=== PATIENT | female | born 1980 | race Two or more races ===

== ENCOUNTER 2021-09-06 11:21 | Emergency (ER) | payer OTHER, SELFPAY ==
--- NOTE | 2021-09-06 | ECG_ITS ---
Test Reason : LT ARM PAIN Blood Pressure : / mmHG Vent. Rate : 085 BPM Atrial Rate : 085 BPM P-R Int : 146 ms QRS Dur : 074 ms QT Int : 338 ms P-R-T Axes : 030 020 053 degrees QTc Int : 402 ms Normal sinus rhythm Nonspecific T wave abnormality Borderline ECG When compared with ECG of 22-OCT-2012 10:40, No significant change was found Referred By: Generic ED Physician Electronically Signed By:MEAGAN EATON
--- NOTE | ~2021-09-06 | CT_ITS ---
EXAMINATION: CT HEAD WITHOUT CONTRAST CT CERVICAL SPINE WITHOUT CONTRAST CLINICAL INFORMATION: Left arm tingling. Weakness for 5 days. Cervical radiculopathy. COMPARISON: None. TECHNIQUE: Imaging was performed from the skull base to vertex without intravenous administration of contrast. In addition, helical noncontrast CT imaging was acquired through the cervical spine and source images were reviewed along with axial reconstructions and sagittal and coronal MPRs. [This CT examination was performed using dose optimization techniques as appropriate, variously including the following: *Automated exposure control *Adjustment of mA and/or kV according to patient size (this includes techniques or standardized protocols for targeted exams where dose is matched to indication/reason for exam; i.e. extremities or head) *Use of iterative reconstruction technique] DLP: 1420 mGy-cm FINDINGS: HEAD: No intracranial mass, hemorrhage, or midline shift is visualized. The ventricles and sulci are proportional. No extra-axial collections are identified. The paranasal sinuses and mastoid air cells are well aerated. CERVICAL SPINE: There is no evidence of acute cervical spine fracture. Vertebral bodies remain normal in height. Cervical vertebrae have normal alignment. The cervical disc heights are normal. The facet joints are normal. Neural foramina are open throughout cervical spine. No central canal stenosis. No pre- or paravertebral soft tissue abnormality is identified. Limited assessment of the lung apices is unremarkable. CT/CT cervical spine wo con IMPRESSION: 1. No acute intracranial pathology. 2. Normal CT of cervical spine.
--- NOTE | ~2021-09-06 | US_ITS ---
EXAMINATION: US VENOUS WITH DOPPLER UPPER EXTREMITY, LEFT CLINICAL INFORMATION: Pain COMPARISON: None TECHNIQUE: Ultrasound of the upper extremity is performed using compression sonography and color and pulse Doppler flow with assessment of augmentation of flow. There is also imaging and Doppler assessment of the jugular and subclavian veins. Spectral analysis with color-flow imaging is performed. FINDINGS: Respiratory variation, normal compression, and augmented flow are noted throughout the upper extremity including the axillary, brachial, cubital, and radial and ulnar veins. There is normal flow in the internal jugular and subclavian veins. There is no visible deep or superficial thrombophlebitis. If the patient's symptoms progress, a followup ultrasound in 5 -7 days might be of value to exclude proximal propagation from a nonvisualized distal arm vein. US/US venous duplex UE LT IMPRESSION: No DVT demonstrated in the left upper extremity
--- NOTE | ~2021-09-06 | XR_ITS ---
EXAMINATION: XR ELBOW, LEFT CLINICAL INFORMATION: Rule out arthritis or fracture COMPARISON: None TECHNIQUE: AP, lateral, and oblique views of the left elbow. FINDINGS: The bones and soft tissues are normal. No fracture or joint effusion. Alignment is anatomic. Joint spaces are maintained. XR/XR elbow LT 2V IMPRESSION: Normal left elbow.
--- NOTE | ~2021-09-06 | XR_ITS ---
EXAMINATION: XR SHOULDER, LEFT CLINICAL INFORMATION: Pain COMPARISON: None TECHNIQUE: 3 views of the left shoulder. FINDINGS: The bones and soft tissues are normal. No fracture. Glenohumeral and acromioclavicular alignment is anatomic with normal joint space. No abnormal soft tissue calcifications. XR/XR shoulder LT min 2V IMPRESSION: Normal left shoulder.
--- NOTE | ~2021-09-06 | CT_ITS ---
EXAMINATION: CT HEAD WITHOUT CONTRAST CT CERVICAL SPINE WITHOUT CONTRAST CLINICAL INFORMATION: Left arm tingling. Weakness for 5 days. Cervical radiculopathy. COMPARISON: None. TECHNIQUE: Imaging was performed from the skull base to vertex without intravenous administration of contrast. In addition, helical noncontrast CT imaging was acquired through the cervical spine and source images were reviewed along with axial reconstructions and sagittal and coronal MPRs. [This CT examination was performed using dose optimization techniques as appropriate, variously including the following: *Automated exposure control *Adjustment of mA and/or kV according to patient size (this includes techniques or standardized protocols for targeted exams where dose is matched to indication/reason for exam; i.e. extremities or head) *Use of iterative reconstruction technique] DLP: 1420 mGy-cm FINDINGS: HEAD: No intracranial mass, hemorrhage, or midline shift is visualized. The ventricles and sulci are proportional. No extra-axial collections are identified. The paranasal sinuses and mastoid air cells are well aerated. CERVICAL SPINE: There is no evidence of acute cervical spine fracture. Vertebral bodies remain normal in height. Cervical vertebrae have normal alignment. The cervical disc heights are normal. The facet joints are normal. Neural foramina are open throughout cervical spine. No central canal stenosis. No pre- or paravertebral soft tissue abnormality is identified. Limited assessment of the lung apices is unremarkable. CT/CT head/brain wo con IMPRESSION: 1. No acute intracranial pathology. 2. Normal CT of cervical spine.
[2021-09-06 11:22] VITALS: BP 152/99; PULSE 90; RESP 20; TEMP 36.6; O2SAT 96; BMI 41.9
[2021-09-06 12:53] LABS: MANUAL DIFF FLAG NO
[2021-09-06 12:54] LABS: Basophils Absolute Auto 0.1 X10*3/uL (0.0-0.2); Basophils Percent Auto 0.7 % (0-2); Eosinophils Absolute Auto 0.5 X10*3/uL (0.0-0.4); Hematocrit 45.2 % (37.0-47.0); Hemoglobin 14.6 g/dl (12.0-16.0); Imm Gran Abs Auto 0.07 X10*3/uL (0.00-0.03); Imm Gran Pct Auto 0.6 % (0.0-0.4); Lymphocytes Absolute Auto 2.6 X10*3/uL (1.2-4.9); Mean Corpuscular HGB Conc 32.3 g/dl (31.0-35.0); Mean Corpuscular Hemoglobin 28.5 pg (27.0-33.0); Mean Corpuscular Volume 88.1 fL (80.0-98.0); Mean Platelet Volume 9.3 fL (9.4-12.3); Monocytes Absolute Auto 0.8 X10*3/uL (0.1-1.2); Monocytes Percent Auto 6.7 % (2-11); Neutrophils Absolute Auto 7.9 x10*3/uL (2.0-8.3); Platelet Count 346 X10*3/uL (160-400); Red Blood Count 5.13 X10*6/uL (4.20-5.50); Red Cell Distribution Width 14.5 % (11.0-16.0)
[2021-09-06 13:06] LABS: INTERNATIONAL NORM RATIO 1.1 (0.9-1.1); Prothrombin Time 12.7 SEC (9.9-13.0)
[2021-09-06 13:09] LABS: Partial Thromboplastin Time 37.9 SEC (24.1-38.0)
[2021-09-06 13:11] LABS: Alanine Aminotransferase 20 U/L (0-31); Alkaline Phosphatase 97 U/L (39-117); Anion Gap 13 (12-20); Aspartate Amino Transferase 18 U/L (5-31); Bilirubin Total 0.2 mg/dL (0.0-1.0); Blood Urea Nitrogen 15 mg/dL (9-16); Calcium 9.8 mg/dL (8.4-10.2); Carbon Dioxide 26 mmol/L (22-29); Chloride 107 mmol/L (96-108); Creatinine Clr Calc Pharmacy 126.6; Estimated Glomerular Filt Rate > 60; Glucose Random 87 mg/dL (60-115); Potassium 4.6 mmol/L (3.3-5.1); Sodium 141 mmol/L (135-145); Total Protein 7.2 g/dL (6.5-8.0)
--- NOTE | 2021-09-06 13:15 | ED.GENADULT ---
HPI - General Adult General Chief complaint: Extremity Problem Stated complaint: pain/weakness in left arm Time Seen by Provider: 09/06/21 12:31 Source: patient Mode of arrival: ambulatory Limitations: no limitations History of Present Illness HPI narrative: 41-year-old female with past medical history of high blood pressure presents to ED for left arm pain/tingling/ weakness for the past 5 days. Denies any trauma to left upper extremity, hotness, coolness, redness. Patient states. Denies any chest pain, shortness of breath, or referred neck pain. Patient denies any headache, dizziness, slurred speech, loss of vision, or paralysis of extremities. Related Data Previous Rx's Medication Instructions Recorded naproxen 500 mg tablet 500 mg PO BID PRN 10 Days #20 tab 09/06/21 oxycodone-acetaminophen 5 mg-325 1 tab PO TID PRN #9 tab 09/06/21 mg tablet (Percocet) prednisone 20 mg tablet 60 mg PO DAILY 5 Days #15 tab 09/06/21 Allergies Allergy/AdvReac Type Severity Reaction Status Date / Time No Known Allergies Allergy Unverified 03/11/20 15:16 Review of Systems Review of Systems: Left arm pain Yes all other systems are reviewed and are negative [facility] Past Medical History Medical History (Updated 09/06/21 @ 17:14 by BLANCA Norris) Asthma Hypertension Social History Social History Advance Directives: Yes Advance Directives Information Provided: Yes Advance Directives on File: No Patient : No Physical Exam ED Vital Signs: Vital Signs - 24 hr 09/06/21 11:22 09/06/21 17:17 Temperature 98 F 98.3 F Pulse Rate 90 81 Respiratory Rate 20 18 Blood Pressure 152/99 H 147/94 H Pulse Oximetry 96 97 BMI result Body Mass Index 41.9 Const General: cooperative, healthy appearing, comfortable, no acute distress, well developed, alert, awake and Physically active Orientation/consciousness: patient oriented x3 HENMT Head: Yes normal to inspection, Yes No palpable skull fracture present, Yes normocephalic, Yes atraumatic and No abrasion Eyes General: appearance normal, both eyes and all related structures Neck Neck: Yes normal visual inspection, Yes full ROM, Yes no lymphadenopathy, Yes no meningeal signs, Yes trachea midline, Yes supple, No anterior neck swelling and No tender Chest Chest palpation & inspection: normal inspection of the chest and normal palpation of entire chest wall Resp Effort & Inspection: normal respiratory effort and able to speak in complete sentences Auscultation: clear to auscultation bilaterally Cardio Jugular venous distension: no JVD Heart sounds: S1 normal heart sound present and S2 normal heart sound present GI Inspection: Yes normal to inspection and No abdominal wall ecchymosis Palpation (GI): Soft to palpation, not firm, nontender, no guarding and not rigid General: No CVA tenderness and Yes no CVA tenderness Back/Spine/Pelvis Back: no CVA tenderness, No CVA tenderness and No back tenderness Skin General skin exam: no rashes or lesions noted, elasticity normal and turgor normal Neuro Other: Negative facial droop. Negative slurred speech. Negative pronator drift. Negative Romberg. [id number] and rapid movement intact. Right upper extremtites exam motor/strenght exam is 5+. Left upper extremitey exam motor/strenght exam is 4. / Bilateral Lower extremites motor/strength is 5+ General: patient oriented x3, gait normal, no meningeal signs and CN's II-XI intact bilaterally Extrem Other: left upper extremity: negative for swelling, ecchymosis, deformity, hotness, coldness, red streaks. Capillary refill is intact. Patient states left upper extremity feels swollen but does not appear swollen on visual inspection. Motor/ neuro/vascular exam intact. Patient has complte range of motion of left upper extremity. States tingling in forearm with pain. right upper extremity normal. Motor/ nose/vascular exam intact General: Yes normal to inspection and Yes full ROM Psych Appearance: grossly normal, well kempt and not disheveled NIH Stroke Scale Internal: Initial- Upon Arrival Level of Consciousness: Alert Level of Consciousness Questions: Answers both questions correctly Level of Consciousness Commands: Performs both tasks correctly Best Gaze: Normal Visual: No visual loss Facial Palsy: Normal Motor Arm (Right): No drift Motor Arm (Left): No drift Motor Leg (Right): No drift Motor Leg (Left): No drift Limb Ataxia: Absent Sensory: Normal Best Language: No aphasia Dysarthia: Normal Extinction and Inattention: No abnormality Score: 0 Course Course Course Narrative: no further extremity does not look swollen but because patient stating it looks swollen will do upper extremity ultrasound. Will do x-ray of shoulder and elbow. Due to aging left arm pain will do EKG and troponin. due To tingling sensation will do CPK magnesium. Also will do head CT scan due to left arm strength 4+. Reevaluation(s) Reevaluation #1: EKG negative STEMI, troponin negative. Head CT spine cervical spine normal negative for signs of stroke. Ultrasound negative for DVT. Electrolytes including CPK magnesium were normal. On re-evaluation patient states feels like having nerve tingling pain, from elbow down to her hands Which is the majority of the time. elbow xray is normal. patient states she has [employer] and admits to over use of upper extremities especially left upper extremity. On re-evaluation positive Tinel and Phalen sign. Diagnosis carpal tunnel syndrome. Negative for any neuro deficits. Medical Decision Making MDM Narrative Medical decision making narrative: Carpal tunnel syndrome Lab Data Result diagrams: 09/06/21 12:48 09/06/21 12:48 Labs: Lab Results 09/06/21 09/06/21 09/06/21 Range/Units 12:48 12:48 12:48 WBC 12.0 H (4.8-10.8) X10*3/uL RBC 5.13 (4.20-5.50) X10*6/uL Hgb 14.6 (12.0-16.0) g/dl Hct 45.2 (37.0-47.0) % MCV 88.1 (80.0-98.0) fL MCH 28.5 (27.0-33.0) pg MCHC 32.3 (31.0-35.0) g/dl RDW 14.5 (11.0-16.0) % Plt Count 346 (160-400) X10*3/uL MPV 9.3 L (9.4-12.3) fL Immature Gran % (Auto) 0.6 H (0.0-0.4) % Neut % (Auto) 66.0 (45-73) % Lymph % (Auto) 22.0 (20-40) % [place] % (Auto) 6.7 (2-11) % Eos % (Auto) 4.0 (0-4) % Baso % (Auto) 0.7 (0-2) % Lymph # (Auto) 2.6 (1.2-4.9) X10*3/uL [place] # (Auto) 0.8 (0.1-1.2) X10*3/uL Eos # (Auto) 0.5 H (0.0-0.4) X10*3/uL Baso # (Auto) 0.1 (0.0-0.2) X10*3/uL Abs Immat Gran (auto) 0.07 H (0.00-0.03) X10*3/uL Absolute Neuts (auto) 7.9 (2.0-8.3) x10*3/uL Absolute Nucleated RBC 0.000 (0.0-0.012) X10*3/uL Nucleated RBC % (auto) 0.0 (0.0-0.2) /100WBC PT 12.7 (9.9-13.0) SEC INR 1.1 (0.9-1.1) APTT 37.9 (24.1-38.0) SEC Sodium 141 (135-145) mmol/L Potassium 4.6 (3.3-5.1) mmol/L Chloride 107 (96-108) mmol/L Carbon Dioxide 26 (22-29) mmol/L Anion Gap 13 (12-20) BUN 15 (9-16) mg/dL Creatinine 0.63 (0.5-1.4) mg/dL Estim Creat Clear Calc 126.6 Estimated GFR > 60 Random Glucose 87 (60-115) mg/dL Calcium 9.8 (8.4-10.2) mg/dL Magnesium 2.3 (1.6-2.6) mg/dL Total Bilirubin 0.2 (0.0-1.0) mg/dL AST 18 (5-31) U/L ALT 20 (0-31) U/L Alkaline Phosphatase 97 (39-117) U/L Total Creatine Kinase 35 (26-140) U/L Troponin I High Sens (<3.5-17.0) ng/L Total Protein 7.2 (6.5-8.0) g/dL Albumin 4.0 (3.5-5.0) g/dL 09/06/21 Range/Units 12:48 WBC (4.8-10.8) X10*3/uL RBC (4.20-5.50) X10*6/uL Hgb (12.0-16.0) g/dl Hct (37.0-47.0) % MCV (80.0-98.0) fL MCH (27.0-33.0) pg MCHC (31.0-35.0) g/dl RDW (11.0-16.0) % Plt Count (160-400) X10*3/uL MPV (9.4-12.3) fL Immature Gran % (Auto) (0.0-0.4) % Neut % (Auto) (45-73) % Lymph % (Auto) (20-40) % [place] % (Auto) (2-11) % Eos % (Auto) (0-4) % Baso % (Auto) (0-2) % Lymph # (Auto) (1.2-4.9) X10*3/uL [place] # (Auto) (0.1-1.2) X10*3/uL Eos # (Auto) (0.0-0.4) X10*3/uL Baso # (Auto) (0.0-0.2) X10*3/uL Abs Immat Gran (auto) (0.00-0.03) X10*3/uL Absolute Neuts (auto) (2.0-8.3) x10*3/uL Absolute Nucleated RBC (0.0-0.012) X10*3/uL Nucleated RBC % (auto) (0.0-0.2) /100WBC PT (9.9-13.0) SEC INR (0.9-1.1) APTT (24.1-38.0) SEC Sodium (135-145) mmol/L Potassium (3.3-5.1) mmol/L Chloride (96-108) mmol/L Carbon Dioxide (22-29) mmol/L Anion Gap (12-20) BUN (9-16) mg/dL Creatinine (0.5-1.4) mg/dL Estim Creat Clear Calc Estimated GFR Random Glucose (60-115) mg/dL Calcium (8.4-10.2) mg/dL Magnesium (1.6-2.6) mg/dL Total Bilirubin (0.0-1.0) mg/dL AST (5-31) U/L ALT (0-31) U/L Alkaline Phosphatase (39-117) U/L Total Creatine Kinase (26-140) U/L Troponin I High Sens < 3.5 (<3.5-17.0) ng/L Total Protein (6.5-8.0) g/dL Albumin (3.5-5.0) g/dL ECG Data Interpretation: normal sinus rhythm. Ventricular rate 85. CO interval 46. QRS 74 pr QTC 402. negative STEMI. Discharge Plan Discharge Clinical Impression: Carpal tunnel syndrome Patient Disposition: Home, Self-Care Instructions: Carpal Tunnel Surgery (DC) Additional Instructions: your blood work and images came back normal. Diagnosis is carpal tunnel syndrome. Return to the ED for worsening pain, swelling, redness, bluish black discoloration, coldness, hotness, chest pain, neck pain, fever, chills, shortness of breath, slurred speech, facial droop, loss of vision, paralysis of extremities, or any other concerning symptoms. Prescriptions: New oxycodone-acetaminophen [Percocet] 5-325 mg tablet 1 tab PO TID PRN (Reason: pain) Qty: 9 0RF prednisone 20 mg tablet 60 mg PO DAILY 5 Days Qty: 15 0RF naproxen 500 mg tablet 500 mg PO BID PRN (Reason: pain) 10 Days Qty: 20 0RF Referrals: Patrice Morel PA-C [Physician Photo Optics Technician] - 2 days ( Left Carpal tunnel syndrome) Stand Alone Forms: Work/School Release Interventions: ED Discharge Assessment Last Done: 09/06/21 17:44 Discharge Date/Time: 09/06/21 17:45 Print Language: Indian
[2021-09-06 13:16] LABS: Troponin-I High Sensitivity < 3.5 ng/L (<3.5-17.0)
[2021-09-06 14:08] LABS: Magnesium 2.3 mg/dL (1.6-2.6)
[2021-09-06] MEDS: predniSONE 20 MG TABLET 60 MG PO (16:49)
[2021-09-06] MEDS: oxyCODONE HCl Immed Release 5 MG TABLET PO (16:50)
--- NOTE | 2021-09-06 17:10 | PC.NURSE ---
REPORT TAKEN FROM KELVIN MANINDER.
[2021-09-06 17:17] VITALS: BP 147/94; PULSE 81; RESP 18; TEMP 36.8; O2SAT 97
== END 2021-09-06 17:45 | disposition home or self-care (01) ==
PROVIDERS: Physician Assistant; Emergency Provider Emergency Medicine; PCP Internal Medicine
DX: G56.02 Carpal tunnel syndrome, left upper limb (principal); M79.602 Pain in left arm; I10 Essential (primary) hypertension
CPT/HCPCS: 36415; 70450; 72125; 73030; 73070; 80053; 82550; 83735; 84484; 85025; 85610; 85730; 93005; 93971; 99284